=== PATIENT | female | born 1950 | race Caucasian/White ===

== ENCOUNTER 2017-10-25 20:14 | Emergency (ER) | payer OTHER ==
[2017-10-25] MEDS ORDERED: oxyCODONE/Acetamin 5/325 MG* TAB PO ONE (20:41)
--- NOTE | 2017-10-25 21:57 | RAD ---
INDICATION: Left hip and femur pain after a fall from a horse COMPARISON: CT of the pelvis April 04, 2008 TECHNIQUE: 3 views of the left hip and 5 views of the left femur were obtained. FINDINGS: The visualized bones are well-corticated and properly aligned. The joint spaces are normal. There is no radiographic evidence of acute fracture or dislocation. IMPRESSION: No radiographically apparent fracture of the left hip or femur. If the patient's symptoms persist follow-up imaging is recommended.
--- NOTE | 2017-10-25 22:15 | ED ---
Anastasiya Butt Elizabeth, scribed for Chantal Andrea MD on 10/25/17 at 2045 . Lower Extremity - HPI Summary HPI Summary: This patient is a 67 year old F presenting to [facility] with a chief complaint of left leg and buttock pain since 19:30. The patient notes that the pain started after she fell off a horse. The patient rates the pain 8/10 in severity. Symptoms aggravated by sitting. Symptoms alleviated by lying down. Patient reports inability to bear weight or straighten her left leg. Patient denies any other symptoms. - History of Current Complaint Chief Complaint: EDHipPelvisInjury Stated Complaint: FALL Time Seen by Provider: 10/25/17 20:32 Hx Obtained From: Patient Mechanism Of Injury: Fall From Height Of: - fell off a horse Onset of Pain: Immediate Onset/Duration: Hours - 1 hour Severity Initially: Moderate Severity Currently: Moderate Pain Intensity: 8 Pain Scale Used: 0-10 Numeric Timing: Constant Location: Is Discrete @ - left leg and left buttock Associated Signs And Symptoms: Negative: Redness, Syncope, Abdominal Pain Aggravating Factor(s): Standing, Weight Bearing Alleviating Factor(s): Other - lying down on her right side Able to Bear Weight: No - Allergies/Home Medications Allergies/Adverse Reactions: Allergies Allergy/AdvReac Type Severity Reaction Status Date / Time diclofenac Allergy GI Upset Verified 10/25/17 20:31 ibuprofen Allergy GI Upset Verified 10/25/17 20:31 lisinopril Allergy Coughing Verified 10/25/17 20:31 PMH/Surg Hx/FS Hx/Imm Hx Cardiovascular History: Reports: Hx Hypertension Opthamlomology History: Denies: Hx Legally Blind EENT History: Denies: Hx Deafness - Surgical History Surgery Procedure, Year, and Place: lt radial repair, bilat carpel tunnel repair , ablasion to medial rt leg Infectious Disease History: No Infectious Disease History: Denies: Traveled Outside the [place] in Last 30 Days - Family History Known Family History: Negative: Diabetes - Social History Alcohol Use: Occasionally Substance Use Type: Reports: None Smoking Status (MU): Former Smoker Review of Systems Negative: Fever Negative: Chest Pain Negative: Shortness Of Breath Skin: Other - left leg pain, left buttock pain All Other Systems Reviewed And Are Negative: Yes Physical Exam - Summary Physical Exam Summary: VITAL SIGNS: Reviewed. GENERAL: ~Patient is a well-developed and nourished female who is lying comfortable in the stretcher. Patient is not in any acute respiratory distress. HEAD AND FACE: No signs of trauma. No ecchymosis, hematomas or skull depressions. No sinus tenderness. EYES: PERRLA, EOMI x 2, No injected conjunctiva, no nystagmus. EARS: Hearing grossly intact. Ear canals and tympanic membranes are within normal limits. MOUTH: Oropharynx within normal limits. NECK: Supple, trachea is midline, no adenopathy, no JVD, no carotid bruit, no c- spine tenderness, neck with full ROM. CHEST: Symmetric, no tenderness at palpation LUNGS: Clear to auscultation bilaterally. No wheezing or crackles. CVS: Regular rate and rhythm, S1 and S2 present, no murmurs or gallops appreciated. ABDOMEN: Soft, non-tender. No signs of distention. No rebound no guarding, and no masses palpated. Bowel sounds are normal. EXTREMITIES: FROM in all major joints, no edema, no cyanosis or clubbing. Tenderness over the posterior aspect of the left thigh NEURO: Alert and oriented x 3. No acute neurological deficits. Speech is normal and follows commands. SKIN: Dry and warm Triage Information Reviewed: Yes Vital Signs On Initial Exam: Initial Vitals Temp Pulse Resp BP Pulse Ox 96.7 F 65 22 176/96 99 10/25/17 20:16 10/25/17 20:16 10/25/17 20:16 10/25/17 20:16 10/25/17 20:16 Vital Signs Reviewed: Yes Diagnostics - Vital Signs Vital Signs Temp Pulse Resp BP Pulse Ox 10/25/17 20:37 70 123/68 99 10/25/17 20:36 70 99 10/25/17 20:16 96.7 F 65 22 176/96 99 - Laboratory Lab Statement: Any lab studies that have been ordered have been reviewed, and results considered in the medical decision making process. - Radiology Left Femur XR Xray Interpretation: No Acute Changes - IMPRESSION: No radiographically apparent fracture of the left hip or femur. If the patient's symptoms persist follow-up imaging is recommended. Dr. Andrea has reviewed this report. Radiology Interpretation Completed By: Radiologist Hip left 2 views and pelvis Xray Interpretation: No Acute Changes - IMPRESSION: No radiographically apparent fracture of the left hip or femur. If the patient's symptoms persist follow-up imaging is recommended. Dr. Andrea has reviewed this report. Radiology Interpretation Completed By: Radiologist Re-Evaluation - Re-Evaluation 1st re-eval Re-Evaluation Time: 22:00 Change: Improved Comment: Discussed imaging results with patient Lower Extremity Course/Dx - Course Course Of Treatment: Left femur x-ray and left hip x-ray reveal, per radiologist , no fracture of the left hip or femur. ED physician has reviewed these radiology reports. In the ED course the patient was given oxycodone. The patient is able to ambulate with the help of crutches. The patient will be discharged home with a dx of left thigh pain and a prescription for oxycodone. The patient is agreeable with this plan. - Diagnoses Provider Diagnoses: Left thigh pain Discharge - Sign-Out/Discharge Documenting (check all that apply): Discharge/Admit/Transfer - Discharge Plan Condition: Stable Disposition: HOME Prescriptions: oxyCODONE/Acetamin 5/325 MG* [Percocet 5/325 TAB*] 1 tab PO Q6H PRN #14 tab MDD 4 PRN Reason: Pain Patient Education Materials: Leg Pain (ED) Forms: *Work Release Referrals: Carmen Walsh MD [Primary Care Provider] - 2 Days Additional Instructions: Follow up with primary care physician in 2-3 days if symptoms persist. Return to the emergency department with any new or worsening symptoms. The documentation as recorded by the Anastasiya mcgowan Elizabeth accurately reflects the service I personally performed and the decisions made by Emre bowen Abdul, MD.
[2017-10-25 22:24] VITALS: BP 128/67
== END 2017-10-25 22:22 | disposition home or self-care (01) ==
LOC: ED 20:14
DX: M79.652 Pain in left thigh (principal); V80.010A Animal-rider injured by fall from or being thrown from horse in noncollision accident, initial encounter; Y93.52 Activity, horseback riding; Y92.9 Unspecified place or not applicable; Z87.891 Personal history of nicotine dependence; Z88.8 Allergy status to other drugs, medicaments and biological substances; Z88.6 Allergy status to analgesic agent
CPT/HCPCS: 99282; A9270-GY

== ENCOUNTER 2024-05-20 10:22 | Observation (INO) ==
[~2024-05-20 10:22] MED LIST: HYDROmorphone 1 MG/1 ML SYRINGE IV PRN; Lidocaine 2% PF 5 ML VIAL ONE; Naloxone 0.4 mg VIAL 0.4 mg/ml 1 ml VIAL IV PRN; Ondansetron 4 mg VIAL 2 MG/ML 2 ml VIAL IV PRN; Propofol 10 MG/ML 20 ML BTL ONE; ROPIVACAINE 5 MG/ML 30 ML BTL (0.5%) ONE; fentaNYL 100 mcg/2 ml 50 MCG/ML VIAL IV PRN; fentaNYL 100 mcg/2 ml 50 MCG/ML VIAL ONE
[2024-05-20] MEDS ORDERED: Tranexamic Acid 1 GM/100ML BAG 2,000 MG/200 ML BAG IV ONE (10:49)
[2024-05-20] MEDS ORDERED: Scopolamine 1 mg/72hr PATCH ONE (10:49)
[2024-05-20] MEDS ORDERED: ceFAZolin 2 GM PREMIX 2 GM/50 ML BAG ONE (10:50)
[2024-05-20 11:07] LABS: Rapid COVID-19 Molecular Undetected (Undetected)
[2024-05-20] MEDS ORDERED: Dexmedetomidine 200 mcg/2 ml 2 ml VIAL (200 mcg) ONE (11:16)
[2024-05-20] MEDS ORDERED: Ropivacaine 0.2% 2 MG/ML VIAL ONE (11:20)
[2024-05-20] MEDS: Buffered Lidocaine 1% SYRIN 1 ml INTRADERM ONE (11:42)
[2024-05-20] MEDS: Acetaminophen IV 1 GM/100ML 1,000 MG/100 ML BAG IV ONE (11:42)
[2024-05-20] MEDS: Lactated Ringers 1000 ml BAG 1,000 ML IV SCH ×2 (11:43→17:51)
[2024-05-20] MEDS: Scopolamine 1 mg/72hr PATCH TRANSDERM ONE (11:43)
[2024-05-20] MEDS ORDERED: Glycopyrrolate IV 0.2 MG/ML 1 ML VIAL ONE (13:07)
[2024-05-20] MEDS ORDERED: Sodium Chloride 0.9% 10 ML ONE (13:10)
[2024-05-20] MEDS ORDERED: Magnesium Hydroxide LIQ 30 ML UDC PO PRN (14:07)
[2024-05-20] MEDS ORDERED: Calcium Carb (TUMS) 500 mg CHEW TAB PO PRN (14:07)
[2024-05-20] MEDS ORDERED: Ondansetron 4 mg VIAL 2 MG/ML 2 ml VIAL IV PRN (14:07)
[2024-05-20] MEDS ORDERED: Morphine 2 MG/ML SYRINGE IV PRN (14:07)
[2024-05-20] MEDS ORDERED: Lactulose 30 ml UDC PO PRN (14:07)
[2024-05-20] MEDS ORDERED: Ondansetron 4 mg VIAL 2 MG/ML 2 ml VIAL ONE (14:57)
[2024-05-20] MEDS ORDERED: Dexamethasone IV 4 MG/ML VIAL 1 ml VIAL ONE (14:57)
[2024-05-20] MEDS ORDERED: Propofol 10 MG/ML 20 ML BTL ONE (15:24)
[2024-05-20] MEDS ORDERED: HYDROcodone/ACETAMIN 5/325 mg TAB ONE (16:18)
[2024-05-20] MEDS ORDERED: Mometasone/Formoter 100/5 MDI INH PRN (16:41)
[2024-05-20] MEDS ORDERED: OLOPATADINE 0.7% BOTH EYES PRN (16:41)
[2024-05-20] MEDS: Ondansetron ODT 4 mg TAB 4 MG TAB PO PRN (19:27)
[2024-05-20] MEDS: HYDROcodone/ACETAMIN 5/325 mg TAB PO PRN (19:27)
[2024-05-20] MEDS: Magnesium Hydroxide LIQ 30 ML UDC PO SCH (20:39)
[2024-05-20] MEDS: ceFAZolin 2 GM PREMIX 2 GM/50 ML BAG IV SCH (20:40)
[2024-05-21 06:02] LABS: Hematocrit 31.1 % (35-45); Mean Platelet Volume 7.6 fL (7.5-11.2); Platelet Count 274 10^3/uL (150-450)
[2024-05-21 06:29] LABS: Calcium 8.9 mg/dL (8.6-10.3); Creatinine, Serum 0.65 mg/dL (0.51-0.95); Potassium 3.8 mmol/L (3.5-5.0); eGFR CKD-EPI 93.5 (>60)
[2024-05-21] MEDS: Vitamin THERAPEUTIC TAB PO SCH (08:23)
[2024-05-21] MEDS: Aspirin EC 81 mg TAB.EC (enteric coated) PO SCH (08:25)
[2024-05-21] MEDS: HYDROcodone/ACETAMIN 5/325 mg TAB PO PRN (12:57)
[2024-05-21 14:22] VITALS: BP 148/63
== END 2024-05-21 16:00 | disposition home or self-care (01) ==
LOC: OR 10:22 → SSU 10:22
PROVIDERS: ADMIT Orthopaedic Surgery Adult Reconstructive Orthopaedic Surgery; ATTEND Orthopaedic Surgery Adult Reconstructive Orthopaedic Surgery

== ENCOUNTER 2024-05-22 09:47 | Observation (INO) ==
[2024-05-22 10:39] LABS: ABS Lymphocytes 0.9 10^3/uL (1.0-4.8); ABS Monocytes 1.3 10^3/uL (0.0-0.9); ABS Neutrophils 7.8 10^3/uL (1.5-7.6); ABS Nucleated RBC 0.01 10^3/ul; Eosinophil % 0.4 %; Hematocrit 30.8 % (35-45); Hemoglobin 10.9 g/dL (11.5-14.3); Lymphocyte % 9.2 %; Mean Corpuscular Hemoglobin 30.4 pg (27-33); Mean Corpuscular Hgb Conc 35.2 g/dL (31-36); Mean Corpuscular Volume 86.1 fL (80-97); Mean Platelet Volume 7.5 fL (7.5-11.2); Nucleated Red Blood Cells % 0.1 %/100WBC (0.0-0.8); Platelet Count 242 10^3/uL (150-450); Red Blood Count 3.58 10^6/uL (3.63-4.92); Red Cell Distribution Width 13.3 % (12-17); White Blood Count 10.2 10^3/uL (3.8-11.8)
[2024-05-22] MEDS: Acetaminophen IV 1 GM/100ML 1,000 MG/100 ML BAG IV ONE (11:02)
[2024-05-22 11:12] LABS: Albumin 3.9 g/dL (3.5-5.7); Albumin/Globulin Ratio 1.6 (1-3); Creatinine, Serum 0.58 mg/dL (0.51-0.95); Globulin 2.5 g/dL (2-4); Potassium 3.9 mmol/L (3.5-5.0); Total Bilirubin 0.7 mg/dL (0.2-1.0); Total Protein 6.4 g/dL (6.4-8.9); eGFR CKD-EPI 96.1 (>60)
[2024-05-22] MEDS ORDERED: Al Hydrox/Mg Hydrox/Simet LIQ 30 ML UDC PO PRN (15:31)
[2024-05-22] MEDS: Morphine 4 MG/ML VIAL (1 ml) IV ONE (15:38)
[2024-05-22] MEDS ORDERED: Mometasone/Formoter 100/5 MDI INH PRN (17:00)
[2024-05-22] MEDS: NS 0.9% 1000 ml BAG 1,000 ML IV SCH (19:35)
[2024-05-23 06:47] LABS: ABS Eosinophils 0.1 10^3/uL (0.0-0.5); ABS Lymphocytes 1.1 10^3/uL (1.0-4.8); ABS Monocytes 1.1 10^3/uL (0.0-0.9); ABS Neutrophils 5.8 10^3/uL (1.5-7.6); Eosinophil % 1.1 %; Hematocrit 27.2 % (35-45); Hemoglobin 9.7 g/dL (11.5-14.3); Mean Corpuscular Hemoglobin 30.7 pg (27-33); Mean Corpuscular Hgb Conc 35.7 g/dL (31-36); Mean Corpuscular Volume 85.9 fL (80-97); Mean Platelet Volume 7.5 fL (7.5-11.2); Platelet Count 215 10^3/uL (150-450); Red Blood Count 3.17 10^6/uL (3.63-4.92); Red Cell Distribution Width 13.4 % (12-17); White Blood Count 8.2 10^3/uL (3.8-11.8)
[2024-05-23 07:33] LABS: Anion Gap 6 mmol/L (2-16); Blood Urea Nitrogen 8 mg/dL (6-24); CO2 Carbon Dioxide 28 mmol/L (22-32); Calcium 7.7 mg/dL (8.6-10.3); Chloride 102 mmol/L (101-111); Creatinine, Serum < 0.30 mg/dL (0.51-0.95); Glucose 126 mg/dL (70-100); Magnesium 2.2 mg/dL (1.9-2.7); Potassium 3.8 mmol/L (3.5-5.0); Sodium 136 mmol/L (135-145); eGFR CKD-EPI 112.6 (>60)
[2024-05-23] MEDS: Aspirin EC 81 mg TAB.EC (enteric coated) PO SCH (09:34)
[2024-05-26] MEDS: HYDROcodone/ACETAMIN 5/325 mg TAB PO PRN (18:02)
[2024-05-27 09:48] VITALS: BP 149/68
== END 2024-05-27 11:30 ==
LOC: ED 09:47 → EDHOLD 09:47 → SUATTDRO 15:31 → MED 17:31
PROVIDERS: ADMIT Internal Medicine; ATTEND Student in an Organized Health Care Education/Training Program